=== PATIENT | male | born 1950 | race Caucasian/White ===

== ENCOUNTER 2018-02-27 17:00 | Observation (INO) | payer MEDICARE ==
[~2018-02-27] VITALS: Ht 177.8 cm; Wt 81.1 kg
[2018-02-27 17:51] LABS: BASOPHILS ABSOLUTE AUTO 0.06 K/mm3 (0.00-0.23); BASOPHILS PERCENT AUTO 1 % (0-2); EOSINOPHILS ABSOLUTE AUTO 0.23 K/mm3 (0.00-0.68); EOSINOPHILS PERCENT AUTO 2 % (0-6); Hematocrit 44.2 % (37.0-53.0); Hemoglobin 15.7 g/dL (13.5-17.5); IMMATURE GRAN ABSOLUTE AUTO 0.03 K/mm3 (0.00-0.10); IMMATURE GRAN PERCENT AUTO 0 % (0-1); LYMPHOCYTES PERCENT AUTO 14 % (21-46); MONOCYTES ABSOLUTE AUTO 0.98 K/mm3 (0.16-1.47); MONOCYTES PERCENT AUTO 9 % (4-13); Mean Corpuscular HGB 31.6 pg (26.0-34.0); Mean Corpuscular HGB Conc 35.5 g/dL (31.5-36.5); Mean Corpuscular Volume 89 fL (80-100); Mean Platelet Volume 11.6 fL (9.1-12.4); NEUTROPHILS ABSOLUTE AUTO 8.61 K/mm3 (1.96-9.15); NEUTROPHILS PERCENT AUTO 75 % (41-73); Platelet Count 277 K/mm3 (150-400); RDW Coefficient Variation 11.9 % (11.7-14.2); Red Blood Cell Count 4.97 M/mm3 (4.30-5.90); White Blood Cell Count 11.51 K/mm3 (4.00-11.30)
[2018-02-27 18:05] LABS: International Normalized Ratio 1.11; Prothrombin Time Results 11.4 Sec (9.7-11.5)
[2018-02-27 18:18] LABS: Albumin, Blood 4.4 g/dL (3.4-5.0); Albumin/Globulin Ratio 1.3 (0.8-1.8); Bilirubin, Total 1.1 mg/dL (0.1-1.0); Calcium, Blood 10.3 mg/dL (8.5-10.1); Creatinine, Blood 1.42 mg/dL (0.60-1.20); Globulin, Blood 3.3 g/dL (2.2-4.0); Potassium, Blood 4.3 mmol/L (3.5-5.5); Total Protein, Blood 7.7 g/dL (6.4-8.2)
[2018-02-27 19:28] LABS: Free Thyroxine 1.08 ng/dL (0.70-1.60); Magnesium, Blood 2.3 mg/dL (1.6-2.4)
[2018-02-27 19:34] LABS: Bilirubin, Urine Neg (Neg); Blood, Urine Neg (Neg); Glucose Qualitative, Urine Neg (Neg); Ketones, Urine 1+ (Neg); Leukocyte Esterase, Urine Neg (Neg); Nitrite, Urine Neg (Neg); Protein, Urine Neg (Neg); Specific Gravity, Urine 1.015 (1.003-1.022); Urobilinogen, Urine NORM (Normal); pH, Urine 6.5 (5.0-8.0)
[2018-02-27 19:47] LABS: Appearance, Urine Clear (Clear); Color, Urine Yellow (P-Yellow)
[2018-02-27 19:54] LABS: Thyroid Stimulating Hormone 1.86 uIU/mL (0.360-4.800)
[2018-02-27] MEDS ORDERED: CARB100 (20:06)
[2018-02-27] MEDS ORDERED: AMLO10 PO (20:07)
[2018-02-27] MEDS ORDERED: BUPR150ER PO (20:07)
[2018-02-27] MEDS ORDERED: EZET10 PO (20:07)
[2018-02-27] MEDS ORDERED: GEMF600 PO (20:08)
[2018-02-27] MEDS ORDERED: LITH300C PO (20:08)
[2018-02-27] MEDS ORDERED: PANT40 PO (20:09)
[2018-02-27] MEDS ORDERED: SPIR50 PO (20:09)
[2018-02-27] MEDS ORDERED: SUCR1 PO (20:09)
[2018-02-27] MEDS ORDERED: LOSA50 PO (20:09)
[2018-02-27] MEDS ORDERED: ONDA4 PO (20:09)
[2018-02-27] MEDS ORDERED: Senna8.6 MG PO (22:17)
[2018-02-28 05:54] LABS: Anion Gap 12 mmol/L (6-16); Blood Urea Nitrogen 23 mg/dL (8-24); Bun/Creatinine Ratio 20.9 (12.0-20.0); CO2, Blood 22 mmol/L (21-32); Calcium, Blood 9.4 mg/dL (8.5-10.1); Chloride, Blood 104 mmol/L (98-108); Glomerular Filtration Rate >60 (60-); Glucose, Blood 79 mg/dL (70-99); Potassium, Blood 3.9 mmol/L (3.5-5.5); Sodium, Blood 138 mmol/L (136-145)
[2018-03-01 05:07] LABS: Hematocrit 40.7 % (37.0-53.0); Hemoglobin 14.2 g/dL (13.5-17.5); Mean Corpuscular HGB 31.1 pg (26.0-34.0); Mean Corpuscular HGB Conc 34.9 g/dL (31.5-36.5); Mean Corpuscular Volume 89 fL (80-100); Mean Platelet Volume 11.4 fL (9.1-12.4); Platelet Count 211 K/mm3 (150-400); RDW Coefficient Variation 11.9 % (11.7-14.2); RDW Standard Deviation 38.5 fL (35.1-46.3); Red Blood Cell Count 4.57 M/mm3 (4.30-5.90); White Blood Cell Count 9.19 K/mm3 (4.00-11.30)
[2018-03-01 05:26] LABS: Anion Gap 7 mmol/L (6-16); Blood Urea Nitrogen 18 mg/dL (8-24); Bun/Creatinine Ratio 16.2 (12.0-20.0); CO2, Blood 27 mmol/L (21-32); Calcium, Blood 9.2 mg/dL (8.5-10.1); Chloride, Blood 104 mmol/L (98-108); Creatinine, Blood 1.11 mg/dL (0.60-1.20); Glomerular Filtration Rate >60 (60-); Glucose, Blood 81 mg/dL (70-99); Sodium, Blood 138 mmol/L (136-145)
[2018-03-01] MEDS ORDERED: Carbidopa-Levo1 EACH PO (17:53)
[2018-03-01] MEDS ORDERED: GAVILAX17 GM PO (17:54)
[2018-03-01] MEDS ORDERED: COLACE 2-IN-11 EACH PO (17:54)
[2018-03-01] MEDS ORDERED: FAMO20 PO ×2 (17:54→17:57)
[2018-03-01] MEDS ORDERED: DOCU100 PO (17:56)
== END 2018-03-01 18:33 | disposition home health service (06) ==
LOC: ER 17:00 → MEDS 17:01 → ER 21:09 → MEDS 21:16 → ENPENDDIS 03-01 16:54 → MEDS 03-01 18:33
PROVIDERS: Emergency Medicine; Internal Medicine
DX: R53.1 Weakness (principal); R25.1 Tremor, unspecified; N17.9 Acute kidney failure, unspecified; E86.0 Dehydration; R11.2 Nausea with vomiting, unspecified; I10 Essential (primary) hypertension; E78.5 Hyperlipidemia, unspecified; E11.9 Type 2 diabetes mellitus without complications; F32.9 Major depressive disorder, single episode, unspecified; R13.10 Dysphagia, unspecified; R63.4 Abnormal weight loss; K21.9 Gastro-esophageal reflux disease without esophagitis; K31.84 Gastroparesis; I35.0 Nonrheumatic aortic (valve) stenosis; K59.00 Constipation, unspecified; R62.7 Adult failure to thrive; F39 Unspecified mood [affective] disorder; G47.33 Obstructive sleep apnea (adult) (pediatric); Z99.89 Dependence on other enabling machines and devices; Z79.899 Other long term (current) drug therapy
CPT/HCPCS: 36415; 70450; 70553; 71046; 80048; 80053; 81003; 82947; 83735; 84439; 84443; 85025; 85027; 85610; 92610; 93005; 93010; 96361; 96372; 96374; 96376; 97116; 97162; 97166; 97530; 99285; A9577; G0378; G8978; G8979; G8987; G8988; G8996; G8997; G8998; J1650; J2405; J7030

== ENCOUNTER 2019-01-16 07:23 | Day surgery (SDC) | payer MEDICARE ==
[~2019-01-16 07:23] MED LIST: AMLO10 PO; BUPR150ER PO; CARB100; COLACE 2-IN-11 EACH PO; Carbidopa-Levo1 EACH PO; DOCU100 PO; EZET10 PO; FAMO20 PO; GAVILAX17 GM PO; GEMF600 PO; LITH300C PO; LOSA50 PO; ONDA4 PO; PANT40 PO; SPIR50 PO; SUCR1 PO; Senna8.6 MG PO
== END 2019-01-17 22:58 | disposition home or self-care (01) ==
LOC: MOI US 07:23
DX: R59.0 Localized enlarged lymph nodes (principal)
CPT/HCPCS: 38505; 76942; 88305